=== PATIENT | male | born 1975 | race African-American/Black ===

== ENCOUNTER 2018-08-21 13:24 | Inpatient (IN) ==
[2018-08-21] MEDS ORDERED: ACETAMINOPHEN 325 MG TABLET PO PRN (16:10)
[2018-08-21] MEDS ORDERED: MAGNESIUM SULF RIDER 4 GM in PREMIX 1 EACH IV PRN (16:10)
[2018-08-21] MEDS ORDERED: MAGNESIUM SULF RIDER 2 GM in PREMIX 1 EACH IV PRN (16:10)
[2018-08-21] MEDS: tiZANidine 4 MG TABLET PO SCH ×2 (17:01→21:37)
[2018-08-21] MEDS: FUROSEMIDE 40 MG/4 ML VIAL IV SCH (17:04)
[2018-08-21] MEDS: ENOXAPARIN 40 MG/0.4 ML SYRINGE SUBCUT SCH (21:36)
[2018-08-22 04:11] LABS: Basophils % 0.7 % (0.0-0.8); Eosinophils # 0.1 10*3/uL (0.0-0.87); Eosinophils % 1.7 % (0.00-10.9); Hematocrit 32.7 VOL% (42.0-52.0); Hemoglobin 10.4 GM/DL (14.0-18.0); Immature Granulocytes % 0.2 %; Immature Granulocytes Absolute 0.01 #; Lymphocytes # 1.1 10*3/uL (1.4-4.0); Lymphocytes % 19.6 % (21.2-54.2); Mean Corpuscular HGB Conc 31.8 GM/DL (32-36); Mean Corpuscular Hemoglobin 31 PG (27-34); Mean Corpuscular Volume 95.9 FL (87-102); Mean Platelet Volume 11.2 FL (9.6-12.0); Monocytes # 0.5 10*3/uL (0.11-0.8); Monocytes % 9.1 % (1.7-12.7); Neutrophils % 68.7 % (38.7-73.9); Platelet Count 177 T/CUMM (130-400); Red Blood Count 3.41 MC/CUMM (3.8-5.5); Red Cell Distribution Width 15.4 % (9.3-17.3); White Blood Count 5.8 T/CUMM (4-12)
[2018-08-22 04:27] LABS: Albumin 2.6 G/DL (3.4-5.0); Bilirubin,Total 1.3 MG/DL (0.2-1.0); Calcium 8.2 MG/DL (8.5-10.1); Osmolality,Calculated 285.5 MOS/KG (273-304); Potassium 3.8 MMOL/L (3.5-5.1); Risk Ratio 2.27; Total Protein 7.4 G/DL (6.4-8.3); VLDL CHOLESTEROL 9.2 MG/DL
[2018-08-22] MEDS: PANTOPRAZOLE 40 MG TABLET PO SCH (13:08)
[2018-08-22] MEDS: METOPROLOL TARTRATE 25 MG TABLET PO SCH (13:08)
[2018-08-22] MEDS: SPIRONOLACTONE 25 MG TABLET PO SCH (13:08)
[2018-08-22] MEDS: FUROSEMIDE 40 MG/4 ML VIAL IV SCH ×2 (13:08→17:33)
[2018-08-22] MEDS ORDERED: ALBUMIN 25% 25 GM in PREMIX 1 EACH IV SCH (16:00)
[2018-08-22] MEDS: ALBUMIN 25% 25 GM in PREMIX 1 EACH IV SCH (17:32)
[2018-08-22] MEDS: ENOXAPARIN 40 MG/0.4 ML SYRINGE SUBCUT SCH (20:34)
[2018-08-23] MEDS: ALBUMIN 25% 25 GM in PREMIX 1 EACH IV SCH ×3 (00:37→16:34)
[2018-08-23] MEDS: tiZANidine 4 MG TABLET PO PRN ×3 (00:43→22:32)
[2018-08-23 04:17] LABS: Basophils # 0.1 10*3/uL (0.0-0.2); Basophils % 0.7 % (0.0-0.8); Eosinophils # 0.1 10*3/uL (0.0-0.87); Eosinophils % 1.3 % (0.00-10.9); Hematocrit 33.7 VOL% (42.0-52.0); Hemoglobin 10.5 GM/DL (14.0-18.0); Immature Granulocytes % 0.6 %; Immature Granulocytes Absolute 0.04 #; Lymphocytes % 14.5 % (21.2-54.2); Mean Corpuscular HGB Conc 31.2 GM/DL (32-36); Mean Corpuscular Hemoglobin 30 PG (27-34); Mean Corpuscular Volume 97.4 FL (87-102); Mean Platelet Volume 10.5 FL (9.6-12.0); Monocytes # 0.5 10*3/uL (0.11-0.8); Monocytes % 6.9 % (1.7-12.7); Neutrophils # 5.1 10*3/uL (1.4-7.4); Platelet Count 178 T/CUMM (130-400); Red Blood Count 3.46 MC/CUMM (3.8-5.5); Red Cell Distribution Width 15.2 % (9.3-17.3); White Blood Count 6.7 T/CUMM (4-12)
[2018-08-23 04:34] LABS: Calcium 8.5 MG/DL (8.5-10.1); Osmolality,Calculated 279.8 MOS/KG (273-304); Potassium 3.9 MMOL/L (3.5-5.1)
[2018-08-23] MEDS ORDERED: NITROGLYCERIN SL 0.4 MG TABLET SL PRN (05:26)
[2018-08-23 05:52] LABS: Troponin I 0.136 NG/ML (0.00-0.045)
[2018-08-23] MEDS: METOPROLOL TARTRATE 25 MG TABLET PO SCH (08:56)
[2018-08-23] MEDS: PANTOPRAZOLE 40 MG TABLET PO SCH (08:56)
[2018-08-23] MEDS: SPIRONOLACTONE 25 MG TABLET PO SCH (08:56)
[2018-08-23] MEDS: FUROSEMIDE 40 MG/4 ML VIAL IV SCH ×2 (08:59→16:34)
[2018-08-23] MEDS: ISOSORBIDE MONONITRATE 30 MG TABLET PO SCH (12:46)
[2018-08-23] MEDS: ENOXAPARIN 40 MG/0.4 ML SYRINGE SUBCUT SCH (22:22)
[2018-08-24] MEDS: ALBUMIN 25% 25 GM in PREMIX 1 EACH IV SCH ×2 (02:57→09:42)
[2018-08-24 04:00] LABS: Calcium 8.8 MG/DL (8.5-10.1); Osmolality,Calculated 284.5 MOS/KG (273-304); Potassium 3.9 MMOL/L (3.5-5.1)
[2018-08-24] MEDS ORDERED: metOLazone 5 MG TABLET PO ONE (09:00)
[2018-08-24] MEDS: ISOSORBIDE MONONITRATE 30 MG TABLET PO SCH (09:22)
[2018-08-24] MEDS: METOPROLOL TARTRATE 25 MG TABLET PO SCH (09:23)
[2018-08-24] MEDS: PANTOPRAZOLE 40 MG TABLET PO SCH (09:23)
[2018-08-24] MEDS: SPIRONOLACTONE 25 MG TABLET PO SCH (09:23)
[2018-08-24] MEDS: FUROSEMIDE 40 MG/4 ML VIAL IV SCH ×2 (09:23→18:57)
[2018-08-24] MEDS ORDERED: ISOSORBIDE MONONITRATE 30 MG TABLET PO SCH (09:45)
[2018-08-24] MEDS: LISINOPRIL 2.5 MG TABLET PO SCH (10:42)
[2018-08-24] MEDS: ENOXAPARIN 40 MG/0.4 ML SYRINGE SUBCUT SCH (20:20)
[2018-08-24] MEDS: CARVEDILOL 6.25 MG TABLET PO SCH (20:21)
[2018-08-24] MEDS: tiZANidine 4 MG TABLET PO PRN (20:21)
[2018-08-25] MEDS ORDERED: ALUMINUM/MAGNES/SIMETH MAX STR 30 ML UDCUP PO PRN (00:42)
[2018-08-25 08:05] VITALS: BP 111/51
[2018-08-25] MEDS: PANTOPRAZOLE 40 MG TABLET PO SCH (08:39)
[2018-08-25] MEDS: CARVEDILOL 6.25 MG TABLET PO SCH (08:39)
[2018-08-25] MEDS: SPIRONOLACTONE 25 MG TABLET PO SCH (08:39)
[2018-08-25] MEDS: LISINOPRIL 2.5 MG TABLET PO SCH (08:39)
[2018-08-25] MEDS: FUROSEMIDE 40 MG/4 ML VIAL IV SCH (08:40)
== END 2018-08-25 14:35 | disposition home or self-care (01) | DRG 194 ==
LOC: SUATTDRO 14:56 → N.TELES 14:56
PROVIDERS: ADMIT Internal Medicine; ATTEND Family Medicine

== ENCOUNTER 2019-05-25 14:51 | Inpatient (IN) ==
[2019-05-25] MEDS ORDERED: ZALEPLON 5 MG CAPSULE PO PRN (15:37)
[2019-05-25] MEDS ORDERED: POTASSIUM CHLORIDE 20 MEQ TABLET PO PRN (15:37)
[2019-05-25] MEDS ORDERED: BISACODYL 5 MG TABLET PO PRN (15:37)
[2019-05-25] MEDS ORDERED: ONDANSETRON 4 MG/2 ML VIAL IV PRN (15:37)
[2019-05-25] MEDS ORDERED: MAGNESIUM SULF RIDER 4 GM in PREMIX 1 EACH IV PRN (15:37)
[2019-05-25] MEDS ORDERED: traMADol 50 MG TABLET PO PRN (16:39)
[2019-05-25] MEDS ORDERED: FUROSEMIDE 40 MG/4 ML VIAL IV ONE (17:02)
[2019-05-25 17:10] LABS: Basophils # 0.1 10*3/uL (0.0-0.2); Basophils % 1.1 % (0.0-0.8); Eosinophils # 0.1 10*3/uL (0.0-0.87); Eosinophils % 2.3 % (0.00-10.9); Hematocrit 40.7 VOL% (42.0-52.0); Hemoglobin 12.7 GM/DL (14.0-18.0); Immature Granulocytes % 0.5 %; Immature Granulocytes Absolute 0.03 #; Lymphocytes # 1.2 10*3/uL (1.4-4.0); Lymphocytes % 18.6 % (21.2-54.2); Mean Corpuscular HGB Conc 31.2 GM/DL (32-36); Mean Corpuscular Volume 95.8 FL (87-102); Mean Platelet Volume 10.4 FL (9.6-12.0); Neutrophils % 68.5 % (38.7-73.9); Platelet Count 236 T/CUMM (130-400); Red Blood Count 4.25 MC/CUMM (3.8-5.5); Red Cell Distribution Width 15.2 % (9.3-17.3); White Blood Count 6.2 T/CUMM (4-12)
[2019-05-25] MEDS: PANTOPRAZOLE 40 MG TABLET PO SCH (17:19)
[2019-05-25] MEDS: tiZANidine 4 MG TABLET PO SCH (17:19)
[2019-05-25 17:35] LABS: Albumin 2.3 G/DL (3.4-5.0); Bilirubin,Total 1.2 MG/DL (0.2-1.0); Calcium 8.5 MG/DL (8.5-10.1); Osmolality,Calculated 284.8 MOS/KG (273-304); Total Protein 6.5 G/DL (6.4-8.3)
[2019-05-25 17:38] LABS: Troponin I 0.026 NG/ML (0.00-0.045)
[2019-05-25 19:44] LABS: Troponin I 0.021 NG/ML (0.00-0.045)
[2019-05-25] MEDS: carvediloL 6.25 MG TABLET PO SCH (20:31)
[2019-05-25] MEDS: ENOXAPARIN 40 MG/0.4 ML SYRINGE SUBCUT SCH (20:31)
[2019-05-25] MEDS: MAGNESIUM SULF RIDER 2 GM in PREMIX 1 EACH IV PRN (20:32)
[2019-05-25 22:15] LABS: Troponin I 0.028 NG/ML (0.00-0.045)
[2019-05-25 22:46] LABS: Barbiturates Screen,Urine Negative (Negative); Benzodiazepines Screen,Urine Negative (Negative); Cannabinoid Screen,Urine Negative (Negative); Opiate Screen,Urine Negative (Negative); Phencyclidine Screen,Urine Negative (Negative)
[2019-05-26] MEDS: tiZANidine 4 MG TABLET PO SCH ×4 (03:44→18:05)
[2019-05-26 06:07] LABS: Basophils # 0.1 10*3/uL (0.0-0.2); Basophils % 1.9 % (0.0-0.8); Eosinophils # 0.2 10*3/uL (0.0-0.87); Eosinophils % 3.2 % (0.00-10.9); Hematocrit 40.7 VOL% (42.0-52.0); Hemoglobin 12.8 GM/DL (14.0-18.0); Immature Granulocytes % 0.2 %; Immature Granulocytes Absolute 0.01 #; Lymphocytes # 1.3 10*3/uL (1.4-4.0); Lymphocytes % 23.6 % (21.2-54.2); Mean Corpuscular HGB Conc 31.4 GM/DL (32-36); Mean Corpuscular Volume 95.8 FL (87-102); Mean Platelet Volume 10.8 FL (9.6-12.0); Monocytes % 8.6 % (1.7-12.7); Neutrophils % 62.5 % (38.7-73.9); Platelet Count 235 T/CUMM (130-400); Red Blood Count 4.25 MC/CUMM (3.8-5.5); Red Cell Distribution Width 15.2 % (9.3-17.3); White Blood Count 5.4 T/CUMM (4-12)
[2019-05-26 06:46] LABS: Calcium 8.2 MG/DL (8.5-10.1); Risk Ratio 2.37; VLDL CHOLESTEROL 21.4 MG/DL
[2019-05-26] MEDS: carvediloL 6.25 MG TABLET PO SCH (08:01)
[2019-05-26] MEDS: POTASSIUM CHLORIDE 10 MEQ TABLET PO SCH (08:01)
[2019-05-26] MEDS: FUROSEMIDE 40 MG/4 ML VIAL IV SCH ×2 (08:01→16:14)
[2019-05-26] MEDS: ISOSORBIDE MONONITRATE 30 MG TABLET PO SCH (08:01)
[2019-05-26] MEDS: LISINOPRIL 2.5 MG TABLET PO SCH (08:02)
[2019-05-26] MEDS: PANTOPRAZOLE 40 MG TABLET PO SCH (08:02)
[2019-05-26] MEDS ORDERED: NON-FORMULARY MEDICATION (Omeprazole 20 MG) PO SCH (09:00)
[2019-05-26] MEDS: ENOXAPARIN 40 MG/0.4 ML SYRINGE SUBCUT SCH (20:24)
[2019-05-26] MEDS: carvediloL 3.125 MG TABLET PO SCH (20:26)
[2019-05-27] MEDS: tiZANidine 4 MG TABLET PO SCH ×4 (00:08→17:00)
[2019-05-27 05:27] LABS: Basophils # 0.1 10*3/uL (0.0-0.2); Basophils % 1.3 % (0.0-0.8); Eosinophils # 0.2 10*3/uL (0.0-0.87); Eosinophils % 3.2 % (0.00-10.9); Hematocrit 36.1 VOL% (42.0-52.0); Hemoglobin 11.6 GM/DL (14.0-18.0); Immature Granulocytes % 0.4 %; Immature Granulocytes Absolute 0.02 #; Lymphocytes # 1.4 10*3/uL (1.4-4.0); Lymphocytes % 26.1 % (21.2-54.2); Mean Corpuscular HGB Conc 32.1 GM/DL (32-36); Mean Platelet Volume 10.4 FL (9.6-12.0); Monocytes % 8.6 % (1.7-12.7); Neutrophils % 60.4 % (38.7-73.9); Platelet Count 201 T/CUMM (130-400); Red Cell Distribution Width 15.3 % (9.3-17.3); White Blood Count 5.3 T/CUMM (4-12)
[2019-05-27 05:56] LABS: Calcium 8.1 MG/DL (8.5-10.1); Osmolality,Calculated 277.4 MOS/KG (273-304)
[2019-05-27] MEDS: FUROSEMIDE 40 MG/4 ML VIAL IV SCH ×2 (08:38→15:17)
[2019-05-27] MEDS: ISOSORBIDE MONONITRATE 30 MG TABLET PO SCH (08:38)
[2019-05-27] MEDS: LISINOPRIL 2.5 MG TABLET PO SCH (08:38)
[2019-05-27] MEDS: carvediloL 3.125 MG TABLET PO SCH ×2 (08:38→21:45)
[2019-05-27] MEDS: PANTOPRAZOLE 40 MG TABLET PO SCH (08:39)
[2019-05-27] MEDS: POTASSIUM CHLORIDE 10 MEQ TABLET PO SCH (08:39)
[2019-05-27] MEDS: MAGNESIUM SULF RIDER 2 GM in PREMIX 1 EACH IV PRN (08:39)
[2019-05-27] MEDS: ENOXAPARIN 40 MG/0.4 ML SYRINGE SUBCUT SCH (21:40)
[2019-05-27] MEDS: ALBUTEROL/IPRATROPIUM 3 ML NEB RESP TX SCH (21:44)
[2019-05-28] MEDS: ALBUTEROL/IPRATROPIUM 3 ML NEB RESP TX SCH ×6 (01:04→20:36)
[2019-05-28] MEDS: tiZANidine 4 MG TABLET PO SCH ×4 (01:53→17:19)
[2019-05-28 06:07] LABS: Basophils % 0.7 % (0.0-0.8); Eosinophils # 0.1 10*3/uL (0.0-0.87); Eosinophils % 1.6 % (0.00-10.9); Hematocrit 36.8 VOL% (42.0-52.0); Immature Granulocytes % 0.4 %; Immature Granulocytes Absolute 0.02 #; Lymphocytes % 17.2 % (21.2-54.2); Mean Corpuscular HGB Conc 32.6 GM/DL (32-36); Mean Corpuscular Volume 93.6 FL (87-102); Mean Platelet Volume 10.2 FL (9.6-12.0); Monocytes % 8.6 % (1.7-12.7); Neutrophils % 71.5 % (38.7-73.9); Platelet Count 216 T/CUMM (130-400); Red Blood Count 3.93 MC/CUMM (3.8-5.5); Red Cell Distribution Width 15.1 % (9.3-17.3); White Blood Count 5.7 T/CUMM (4-12)
[2019-05-28 06:19] LABS: Calcium 8.4 MG/DL (8.5-10.1); Osmolality,Calculated 275.7 MOS/KG (273-304)
[2019-05-28] MEDS: carvediloL 3.125 MG TABLET PO SCH ×2 (08:39→21:15)
[2019-05-28] MEDS: ISOSORBIDE MONONITRATE 30 MG TABLET PO SCH (08:39)
[2019-05-28] MEDS: PANTOPRAZOLE 40 MG TABLET PO SCH (08:39)
[2019-05-28] MEDS: FUROSEMIDE 40 MG/4 ML VIAL IV SCH ×3 (08:39→17:17)
[2019-05-28] MEDS: LISINOPRIL 2.5 MG TABLET PO SCH (08:39)
[2019-05-28] MEDS: POTASSIUM CHLORIDE 10 MEQ TABLET PO SCH (08:39)
[2019-05-28] MEDS: MAGNESIUM SULF RIDER 2 GM in PREMIX 1 EACH IV PRN (08:40)
[2019-05-28] MEDS ORDERED: MAGNESIUM SULF RIDER 2 GM in PREMIX 1 EACH IV ONE (11:32)
[2019-05-28] MEDS: ENOXAPARIN 40 MG/0.4 ML SYRINGE SUBCUT SCH (21:15)
[2019-05-29] MEDS: tiZANidine 4 MG TABLET PO SCH ×4 (00:17→17:41)
[2019-05-29] MEDS: ALBUTEROL/IPRATROPIUM 3 ML NEB RESP TX SCH ×6 (00:45→23:39)
[2019-05-29 05:34] LABS: Basophils % 0.9 % (0.0-0.8); Eosinophils # 0.1 10*3/uL (0.0-0.87); Hematocrit 36.5 VOL% (42.0-52.0); Hemoglobin 11.6 GM/DL (14.0-18.0); Immature Granulocytes % 0.2 %; Immature Granulocytes Absolute 0.01 #; Lymphocytes % 22.5 % (21.2-54.2); Mean Corpuscular HGB Conc 31.8 GM/DL (32-36); Mean Corpuscular Volume 94.8 FL (87-102); Mean Platelet Volume 10.2 FL (9.6-12.0); Monocytes % 8.2 % (1.7-12.7); Neutrophils % 65.2 % (38.7-73.9); Platelet Count 190 T/CUMM (130-400); Red Blood Count 3.85 MC/CUMM (3.8-5.5); White Blood Count 4.6 T/CUMM (4-12)
[2019-05-29 06:04] LABS: Calcium 8.2 MG/DL (8.5-10.1); Osmolality,Calculated 278.5 MOS/KG (273-304)
[2019-05-29] MEDS: carvediloL 3.125 MG TABLET PO SCH ×2 (09:37→22:03)
[2019-05-29] MEDS: ISOSORBIDE MONONITRATE 30 MG TABLET PO SCH (09:37)
[2019-05-29] MEDS: POTASSIUM CHLORIDE 10 MEQ TABLET PO SCH (09:37)
[2019-05-29] MEDS: PANTOPRAZOLE 40 MG TABLET PO SCH (09:37)
[2019-05-29] MEDS: FUROSEMIDE 40 MG/4 ML VIAL IV SCH ×2 (09:37→16:23)
[2019-05-29] MEDS: LISINOPRIL 2.5 MG TABLET PO SCH (09:37)
[2019-05-29] MEDS: ENOXAPARIN 40 MG/0.4 ML SYRINGE SUBCUT SCH (22:03)
[2019-05-30] MEDS: tiZANidine 4 MG TABLET PO SCH ×3 (00:45→13:04)
[2019-05-30] MEDS: ALBUTEROL/IPRATROPIUM 3 ML NEB RESP TX SCH ×3 (02:59→11:25)
[2019-05-30] MEDS: carvediloL 3.125 MG TABLET PO SCH (08:40)
[2019-05-30] MEDS: FUROSEMIDE 40 MG/4 ML VIAL IV SCH (08:40)
[2019-05-30] MEDS: LISINOPRIL 2.5 MG TABLET PO SCH (08:41)
[2019-05-30] MEDS: POTASSIUM CHLORIDE 10 MEQ TABLET PO SCH (08:41)
[2019-05-30] MEDS: ISOSORBIDE MONONITRATE 30 MG TABLET PO SCH (08:41)
[2019-05-30] MEDS: PANTOPRAZOLE 40 MG TABLET PO SCH (08:41)
[2019-05-30 12:18] VITALS: BP 82/55
== END 2019-05-30 14:43 | disposition home or self-care (01) | DRG 194 ==
LOC: INTOOBSV 15:42 → N.TELEN 15:42
PROVIDERS: ADMIT Internal Medicine Cardiovascular Disease; ATTEND Internal Medicine Cardiovascular Disease

== ENCOUNTER 2019-08-15 16:55 | Inpatient (IN) ==
[2019-08-15] MEDS ORDERED: FUROSEMIDE 100 MG/10 ML VIAL IV STA (17:34)
[2019-08-15 17:46] LABS: Basophils # 0.1 10*3/uL (0.0-0.2); Basophils % 0.9 % (0.0-0.8); Eosinophils # 0.2 10*3/uL (0.0-0.87); Hematocrit 42.2 VOL% (42.0-52.0); Hemoglobin 13.2 GM/DL (14.0-18.0); Immature Granulocytes % 0.3 %; Immature Granulocytes Absolute 0.02 #; Lymphocytes % 13.7 % (21.2-54.2); Mean Corpuscular HGB Conc 31.3 GM/DL (32-36); Mean Corpuscular Volume 101.4 FL (87-102); Mean Platelet Volume 9.9 FL (9.6-12.0); Monocytes % 8.3 % (1.7-12.7); Neutrophils % 74.8 % (38.7-73.9); Platelet Count 270 T/CUMM (130-400); Red Blood Count 4.16 MC/CUMM (3.8-5.5); Red Cell Distribution Width 15.1 % (9.3-17.3); White Blood Count 7.4 T/CUMM (4-12)
[2019-08-15 18:11] LABS: Albumin 2.3 G/DL (3.4-5.0); Bilirubin,Total 0.9 MG/DL (0.2-1.0); Calcium 8.5 MG/DL (8.5-10.1); Osmolality,Calculated 277.4 MOS/KG (273-304); Total Protein 7.3 G/DL (6.4-8.3)
[2019-08-15] MEDS ORDERED: ONDANSETRON 4 MG/2 ML VIAL ONE (18:15)
[2019-08-15] MEDS ORDERED: methylPREDNISolone SOD SUC 125 MG/2 ML VIAL IV STA (18:20)
[2019-08-15] MEDS ORDERED: FUROSEMIDE 40 MG/4 ML VIAL IV STA (18:20)
[2019-08-15] MEDS ORDERED: ALBUTEROL/IPRATROPIUM 3 ML NEB RESP TX STA (18:20)
[2019-08-15] MEDS ORDERED: ONDANSETRON 4 MG/2 ML VIAL IV STA (18:20)
[2019-08-15 18:52] LABS: ABG Base Excess 0.5 MMOL/L (-2.5-2.5); ABG HCO3 24.4 MMOL/L (20-26); ABG Oxygen Saturation 77.5 % (95-100); ABG PCO2 47.3 MM HG (35-48); ABG PH 7.358 (7.35-7.45); ABG PO2 48.9 MM HG (80-95); ABG TCO2 23.4 MMOL/L (23-27)
[2019-08-15] MEDS ORDERED: ENOXAPARIN 100 MG/ML SYRINGE SUBCUT STA (18:54)
[2019-08-15] MEDS ORDERED: ENOXAPARIN 120 MG/0.8 ML SYRINGE SUBCUT ONE (19:19)
[2019-08-15 19:50] LABS: Apearance,Urine CLEAR (Clear); Bilirubin,Urine Negative (Negative); Blood, Urine Small mg/dL (Negative); Glucose,Urine (UA) Negative (Negative); Ketones,Urine Negative (Negative); Nitrite,Urine Negative (Negative); Protein,Urine Negative; RBC,Urine 6 /HPF (0-4); Urine Color Colorless (Yellow); Urine Specific Gravity 1.004 (1.001-1.035); Urine Urobilinogen < 2.0 EU/DL (0.2-1.0); WBC,Urine 1 /HPF (0-6)
[2019-08-15 19:53] LABS: Barbiturates Screen,Urine Negative (Negative); Benzodiazepines Screen,Urine Negative (Negative); Cannabinoid Screen,Urine Negative (Negative); Opiate Screen,Urine Negative (Negative); Phencyclidine Screen,Urine Negative (Negative)
[2019-08-15] MEDS ORDERED: traMADol 50 MG TABLET PO PRN (20:19)
[2019-08-15] MEDS ORDERED: ALBUTEROL/IPRATROPIUM 3 ML NEB RESP TX PRN (20:19)
[2019-08-15] MEDS ORDERED: ENOXAPARIN 40 MG/0.4 ML SYRINGE SUBCUT SCH (20:30)
[2019-08-15 20:37] LABS: Allen Test Positive; Pt O2 Delivery Device BIPAP
[2019-08-15 20:39] LABS: ABG Base Excess 1.7 MMOL/L (-2.5-2.5); ABG HCO3 25.9 MMOL/L (20-26); ABG PCO2 46.7 MM HG (35-48); ABG PH 7.378 (7.35-7.45); ABG TCO2 24.1 MMOL/L (23-27)
[2019-08-15] MEDS: carvediloL 3.125 MG TABLET PO SCH (22:17)
[2019-08-15] MEDS: methylPREDNISolone SOD SUC 40 MG/1 ML VIAL IV SCH (22:17)
[2019-08-15] MEDS: tiZANidine 4 MG TABLET PO SCH (22:18)
[2019-08-15 22:22] LABS: Troponin I < 0.015 NG/ML (0.00-0.045)
[2019-08-16] MEDS: methylPREDNISolone SOD SUC 40 MG/1 ML VIAL IV SCH ×4 (04:32→20:43)
[2019-08-16] MEDS: tiZANidine 4 MG TABLET PO SCH ×4 (04:33→20:44)
[2019-08-16 06:22] LABS: Basophils % 0.2 % (0.0-0.8); Hematocrit 39.9 VOL% (42.0-52.0); Hemoglobin 12.4 GM/DL (14.0-18.0); Immature Granulocytes % 0.6 %; Immature Granulocytes Absolute 0.03 #; Lymphocytes # 0.5 10*3/uL (1.4-4.0); Lymphocytes % 9.4 % (21.2-54.2); Mean Corpuscular HGB Conc 31.1 GM/DL (32-36); Monocytes % 0.8 % (1.7-12.7); Platelet Count 231 T/CUMM (130-400); Red Blood Count 3.91 MC/CUMM (3.8-5.5); Red Cell Distribution Width 15.1 % (9.3-17.3); White Blood Count 5.3 T/CUMM (4-12)
[2019-08-16 06:41] LABS: Albumin 2.1 G/DL (3.4-5.0); Bilirubin,Total 1.8 MG/DL (0.2-1.0); Calcium 8.2 MG/DL (8.5-10.1); Osmolality,Calculated 282.4 MOS/KG (273-304); Risk Ratio 2.02; Total Protein 6.4 G/DL (6.4-8.3); VLDL CHOLESTEROL 13.6 MG/DL
[2019-08-16 06:44] LABS: Troponin I < 0.015 NG/ML (0.00-0.045)
[2019-08-16] MEDS ORDERED: FUROSEMIDE 40 MG/4 ML VIAL IV SCH (08:00)
[2019-08-16] MEDS: FUROSEMIDE 40 MG/4 ML VIAL IV SCH ×2 (08:03→16:04)
[2019-08-16] MEDS: carvediloL 3.125 MG TABLET PO SCH ×2 (08:03→16:59)
[2019-08-16] MEDS: POTASSIUM CHLORIDE 10 MEQ TABLET PO SCH (08:03)
[2019-08-16] MEDS: PANTOPRAZOLE 40 MG TABLET PO SCH (08:03)
[2019-08-16] MEDS ORDERED: lisinopriL 2.5 MG TABLET PO SCH (09:00)
[2019-08-16] MEDS ORDERED: ISOSORBIDE MONONITRATE 30 MG TABLET PO SCH (09:00)
[2019-08-16] MEDS ORDERED: SODIUM CHLORIDE 0.9% 250 ML IV ONE (12:39)
[2019-08-16] MEDS ORDERED: NICOTINE 21 MG/24 HR PATCH TRANSDERM PRN (14:54)
[2019-08-16] MEDS: MULTIVITAMIN (CENTRUM) TABLET PO SCH (16:03)
[2019-08-16] MEDS: FOLIC ACID 1 MG TABLET PO SCH (16:03)
[2019-08-16] MEDS: THIAMINE 100 MG TABLET PO SCH (16:03)
[2019-08-16] MEDS: ENOXAPARIN 40 MG/0.4 ML SYRINGE SUBCUT SCH (20:43)
[2019-08-17] MEDS: methylPREDNISolone SOD SUC 40 MG/1 ML VIAL IV SCH ×4 (01:50→20:23)
[2019-08-17] MEDS: tiZANidine 4 MG TABLET PO SCH ×4 (03:04→22:26)
[2019-08-17 06:11] LABS: Basophils % 0.1 % (0.0-0.8); Hematocrit 38.4 VOL% (42.0-52.0); Immature Granulocytes % 0.4 %; Immature Granulocytes Absolute 0.05 #; Lymphocytes # 0.6 10*3/uL (1.4-4.0); Lymphocytes % 4.6 % (21.2-54.2); Mean Corpuscular HGB Conc 31.3 GM/DL (32-36); Mean Corpuscular Volume 101.3 FL (87-102); Monocytes % 2.8 % (1.7-12.7); Neutrophils % 92.1 % (38.7-73.9); Platelet Count 252 T/CUMM (130-400); Red Blood Count 3.79 MC/CUMM (3.8-5.5); Red Cell Distribution Width 14.8 % (9.3-17.3); White Blood Count 12.1 T/CUMM (4-12)
[2019-08-17 06:34] LABS: Band Neutrophils 1 % (0-10); Hypochromasia 1+; Lymphocytes 1 % (20-55); Platelet Estimate Adequate; Segmented Neutrophils 95 % (50-85); Total Cells Counted 100
[2019-08-17 06:35] LABS: Ovalocytes Slight
[2019-08-17 06:46] LABS: Calcium 8.4 MG/DL (8.5-10.1); Osmolality,Calculated 281.4 MOS/KG (273-304)
[2019-08-17] MEDS: PANTOPRAZOLE 40 MG TABLET PO SCH (08:40)
[2019-08-17] MEDS: POTASSIUM CHLORIDE 10 MEQ TABLET PO SCH (08:40)
[2019-08-17] MEDS: MULTIVITAMIN (CENTRUM) TABLET PO SCH (08:40)
[2019-08-17] MEDS: FOLIC ACID 1 MG TABLET PO SCH (08:40)
[2019-08-17] MEDS: THIAMINE 100 MG TABLET PO SCH (08:40)
[2019-08-17] MEDS: carvediloL 3.125 MG TABLET PO SCH ×2 (08:42→16:57)
[2019-08-17] MEDS: FUROSEMIDE 40 MG/4 ML VIAL IV SCH ×3 (08:42→15:41)
[2019-08-17] MEDS: ENOXAPARIN 40 MG/0.4 ML SYRINGE SUBCUT SCH (20:23)
[2019-08-18] MEDS: methylPREDNISolone SOD SUC 40 MG/1 ML VIAL IV SCH ×4 (02:09→20:53)
[2019-08-18] MEDS: tiZANidine 4 MG TABLET PO SCH ×4 (04:21→20:56)
[2019-08-18 05:38] LABS: Basophils % 0.1 % (0.0-0.8); Hematocrit 39.9 VOL% (42.0-52.0); Hemoglobin 12.4 GM/DL (14.0-18.0); Immature Granulocytes % 0.7 %; Immature Granulocytes Absolute 0.08 #; Lymphocytes # 0.4 10*3/uL (1.4-4.0); Lymphocytes % 3.2 % (21.2-54.2); Mean Corpuscular HGB Conc 31.1 GM/DL (32-36); Mean Corpuscular Volume 102.3 FL (87-102); Mean Platelet Volume 10.1 FL (9.6-12.0); Monocytes % 2.3 % (1.7-12.7); Neutrophils % 93.7 % (38.7-73.9); Platelet Count 243 T/CUMM (130-400); White Blood Count 11.1 T/CUMM (4-12)
[2019-08-18 06:00] LABS: Hypochromasia 1+; Lymphocytes 4 % (20-55); Platelet Estimate Adequate; Segmented Neutrophils 94 % (50-85); Total Cells Counted 100
[2019-08-18 06:04] LABS: Calcium 8.4 MG/DL (8.5-10.1); Osmolality,Calculated 279.5 MOS/KG (273-304)
[2019-08-18] MEDS: carvediloL 3.125 MG TABLET PO SCH ×2 (08:48→16:57)
[2019-08-18] MEDS: FUROSEMIDE 40 MG/4 ML VIAL IV SCH ×2 (08:49→15:46)
[2019-08-18] MEDS: MULTIVITAMIN (CENTRUM) TABLET PO SCH (08:53)
[2019-08-18] MEDS: POTASSIUM CHLORIDE 10 MEQ TABLET PO SCH (08:53)
[2019-08-18] MEDS: THIAMINE 100 MG TABLET PO SCH (08:53)
[2019-08-18] MEDS: FOLIC ACID 1 MG TABLET PO SCH (08:53)
[2019-08-18] MEDS: PANTOPRAZOLE 40 MG TABLET PO SCH (08:53)
[2019-08-18] MEDS: ENOXAPARIN 40 MG/0.4 ML SYRINGE SUBCUT SCH (20:56)
[2019-08-19] MEDS: methylPREDNISolone SOD SUC 40 MG/1 ML VIAL IV SCH ×4 (03:46→20:22)
[2019-08-19] MEDS: tiZANidine 4 MG TABLET PO SCH ×3 (03:47→15:44)
[2019-08-19 05:15] LABS: Basophils % 0.1 % (0.0-0.8); Hematocrit 38.6 VOL% (42.0-52.0); Hemoglobin 12.3 GM/DL (14.0-18.0); Immature Granulocytes % 0.5 %; Immature Granulocytes Absolute 0.04 #; Lymphocytes # 0.7 10*3/uL (1.4-4.0); Lymphocytes % 8.3 % (21.2-54.2); Mean Corpuscular HGB Conc 31.9 GM/DL (32-36); Mean Corpuscular Volume 100.5 FL (87-102); Mean Platelet Volume 10.6 FL (9.6-12.0); Monocytes % 5.7 % (1.7-12.7); Neutrophils % 85.4 % (38.7-73.9); Platelet Count 232 T/CUMM (130-400); Red Blood Count 3.84 MC/CUMM (3.8-5.5); Red Cell Distribution Width 14.9 % (9.3-17.3); White Blood Count 8.8 T/CUMM (4-12)
[2019-08-19 05:41] LABS: Calcium 8.2 MG/DL (8.5-10.1); Osmolality,Calculated 278.7 MOS/KG (273-304)
[2019-08-19] MEDS ORDERED: MAGNESIUM SULF RIDER 2 GM in PREMIX 1 EACH IV PRN (07:17)
[2019-08-19] MEDS ORDERED: MAGNESIUM SULF RIDER 4 GM in PREMIX 1 EACH IV PRN (07:17)
[2019-08-19] MEDS: carvediloL 3.125 MG TABLET PO SCH (07:49)
[2019-08-19] MEDS: FUROSEMIDE 40 MG/4 ML VIAL IV SCH (09:09)
[2019-08-19] MEDS: POTASSIUM CHLORIDE 10 MEQ TABLET PO SCH (09:11)
[2019-08-19] MEDS: MULTIVITAMIN (CENTRUM) TABLET PO SCH (09:11)
[2019-08-19] MEDS: POTASSIUM CHLORIDE 20 MEQ TABLET PO PRN (09:12)
[2019-08-19] MEDS: PANTOPRAZOLE 40 MG TABLET PO SCH (09:12)
[2019-08-19] MEDS: THIAMINE 100 MG TABLET PO SCH (09:16)
[2019-08-19] MEDS: FOLIC ACID 1 MG TABLET PO SCH (09:19)
[2019-08-19] MEDS ORDERED: MORPHINE 4 MG/1 ML VIAL ONE (11:18)
[2019-08-19] MEDS ORDERED: NITROGLYCERIN SL 0.4 MG TABLET SL ONE (11:18)
[2019-08-19 12:28] LABS: Troponin I < 0.015 NG/ML (0.00-0.045)
[2019-08-19] MEDS: FUROSEMIDE 20 MG TABLET PO SCH (15:44)
[2019-08-19] MEDS: ENOXAPARIN 40 MG/0.4 ML SYRINGE SUBCUT SCH (20:26)
[2019-08-19] MEDS ORDERED: carvediloL 3.125 MG TABLET PO SCH (21:00)
[2019-08-20] MEDS: tiZANidine 4 MG TABLET PO SCH ×5 (00:15→20:42)
[2019-08-20] MEDS: methylPREDNISolone SOD SUC 40 MG/1 ML VIAL IV SCH ×4 (01:30→20:42)
[2019-08-20 05:38] LABS: Hemoglobin 13.9 GM/DL (14.0-18.0); Immature Granulocytes % 0.7 %; Immature Granulocytes Absolute 0.07 #; Lymphocytes # 0.5 10*3/uL (1.4-4.0); Lymphocytes % 5.4 % (21.2-54.2); Mean Corpuscular HGB Conc 31.6 GM/DL (32-36); Mean Corpuscular Volume 100.9 FL (87-102); Mean Platelet Volume 11.3 FL (9.6-12.0); Monocytes % 5.3 % (1.7-12.7); Neutrophils % 88.6 % (38.7-73.9); Platelet Count 161 T/CUMM (130-400); Red Blood Count 4.36 MC/CUMM (3.8-5.5); Red Cell Distribution Width 14.7 % (9.3-17.3); White Blood Count 9.4 T/CUMM (4-12)
[2019-08-20 06:15] LABS: Calcium 8.6 MG/DL (8.5-10.1); Osmolality,Calculated 277.8 MOS/KG (273-304)
[2019-08-20] MEDS: carvediloL 3.125 MG TABLET PO SCH ×2 (10:05→20:43)
[2019-08-20] MEDS: PANTOPRAZOLE 40 MG TABLET PO SCH (10:05)
[2019-08-20] MEDS: POTASSIUM CHLORIDE 10 MEQ TABLET PO SCH (10:05)
[2019-08-20] MEDS: MULTIVITAMIN (CENTRUM) TABLET PO SCH (10:05)
[2019-08-20] MEDS: FOLIC ACID 1 MG TABLET PO SCH (10:05)
[2019-08-20] MEDS: THIAMINE 100 MG TABLET PO SCH (10:06)
[2019-08-20] MEDS: FUROSEMIDE 20 MG TABLET PO SCH ×2 (10:06→16:55)
[2019-08-20] MEDS: ENOXAPARIN 40 MG/0.4 ML SYRINGE SUBCUT SCH (20:42)
[2019-08-21] MEDS: methylPREDNISolone SOD SUC 40 MG/1 ML VIAL IV SCH ×4 (01:36→22:41)
[2019-08-21] MEDS: tiZANidine 4 MG TABLET PO SCH ×4 (02:37→22:14)
[2019-08-21 05:49] LABS: Hematocrit 38.6 VOL% (42.0-52.0); Hemoglobin 12.6 GM/DL (14.0-18.0); Immature Granulocytes % 0.6 %; Immature Granulocytes Absolute 0.04 #; Lymphocytes # 0.2 10*3/uL (1.4-4.0); Lymphocytes % 3.5 % (21.2-54.2); Mean Corpuscular HGB Conc 32.6 GM/DL (32-36); Mean Platelet Volume 10.8 FL (9.6-12.0); Monocytes % 1.8 % (1.7-12.7); Neutrophils % 94.1 % (38.7-73.9); Platelet Count 182 T/CUMM (130-400); Red Cell Distribution Width 14.6 % (9.3-17.3); White Blood Count 6.6 T/CUMM (4-12)
[2019-08-21 06:02] LABS: Calcium 8.3 MG/DL (8.5-10.1); Osmolality,Calculated 285.7 MOS/KG (273-304)
[2019-08-21 06:12] LABS: Lymphocytes 1 % (20-55); Platelet Estimate Adequate; Segmented Neutrophils 97 % (50-85); Total Cells Counted 100
[2019-08-21 06:13] LABS: Hypochromasia 1+
[2019-08-21] MEDS: MULTIVITAMIN (CENTRUM) TABLET PO SCH (10:03)
[2019-08-21] MEDS: POTASSIUM CHLORIDE 20 MEQ TABLET PO PRN (10:03)
[2019-08-21] MEDS: carvediloL 3.125 MG TABLET PO SCH ×2 (10:03→22:13)
[2019-08-21] MEDS: POTASSIUM CHLORIDE 10 MEQ TABLET PO SCH (10:04)
[2019-08-21] MEDS: PANTOPRAZOLE 40 MG TABLET PO SCH (10:04)
[2019-08-21] MEDS: THIAMINE 100 MG TABLET PO SCH (10:04)
[2019-08-21] MEDS: FUROSEMIDE 20 MG TABLET PO SCH ×2 (10:04→17:00)
[2019-08-21] MEDS: FOLIC ACID 1 MG TABLET PO SCH (10:04)
[2019-08-21] MEDS: lisinopriL 2.5 MG TABLET PO SCH (10:07)
[2019-08-21] MEDS: ENOXAPARIN 40 MG/0.4 ML SYRINGE SUBCUT SCH (22:15)
[2019-08-22] MEDS: methylPREDNISolone SOD SUC 40 MG/1 ML VIAL IV SCH ×4 (04:07→21:54)
[2019-08-22] MEDS: tiZANidine 4 MG TABLET PO SCH ×4 (04:09→21:58)
[2019-08-22 05:28] LABS: Hematocrit 40.2 VOL% (42.0-52.0); Hemoglobin 12.8 GM/DL (14.0-18.0); Immature Granulocytes % 0.4 %; Immature Granulocytes Absolute 0.04 #; Lymphocytes # 0.3 10*3/uL (1.4-4.0); Lymphocytes % 2.8 % (21.2-54.2); Mean Corpuscular HGB Conc 31.8 GM/DL (32-36); Mean Platelet Volume 10.9 FL (9.6-12.0); Neutrophils % 93.8 % (38.7-73.9); Platelet Count 173 T/CUMM (130-400); Red Blood Count 4.06 MC/CUMM (3.8-5.5); Red Cell Distribution Width 14.6 % (9.3-17.3); White Blood Count 9.6 T/CUMM (4-12)
[2019-08-22 05:47] LABS: Calcium 8.4 MG/DL (8.5-10.1); Osmolality,Calculated 280.8 MOS/KG (273-304)
[2019-08-22 05:49] LABS: Hypochromasia 1+; Lymphocytes 2 % (20-55); Ovalocytes Slight; Platelet Estimate Adequate; Segmented Neutrophils 95 % (50-85); Total Cells Counted 100
[2019-08-22] MEDS: POTASSIUM CHLORIDE 20 MEQ TABLET PO PRN (06:14)
[2019-08-22] MEDS ORDERED: FUROSEMIDE 40 MG/4 ML VIAL IV ONE (09:17)
[2019-08-22] MEDS: FOLIC ACID 1 MG TABLET PO SCH (09:43)
[2019-08-22] MEDS: MULTIVITAMIN (CENTRUM) TABLET PO SCH (09:43)
[2019-08-22] MEDS: POTASSIUM CHLORIDE 10 MEQ TABLET PO SCH (09:43)
[2019-08-22] MEDS: carvediloL 3.125 MG TABLET PO SCH ×2 (09:44→21:57)
[2019-08-22] MEDS: lisinopriL 2.5 MG TABLET PO SCH (09:44)
[2019-08-22] MEDS: PANTOPRAZOLE 40 MG TABLET PO SCH (09:44)
[2019-08-22] MEDS: ASPIRIN EC 81 MG TABLET PO SCH (09:44)
[2019-08-22] MEDS: THIAMINE 100 MG TABLET PO SCH (09:44)
[2019-08-22] MEDS: FUROSEMIDE 20 MG TABLET PO SCH ×2 (09:50→16:07)
[2019-08-22] MEDS: ALBUTEROL/IPRATROPIUM 3 ML NEB RESP TX SCH ×2 (13:00→21:11)
[2019-08-22] MEDS: ENOXAPARIN 40 MG/0.4 ML SYRINGE SUBCUT SCH (21:58)
[2019-08-23] MEDS: ALBUTEROL/IPRATROPIUM 3 ML NEB RESP TX SCH ×2 (01:13→07:39)
[2019-08-23] MEDS: methylPREDNISolone SOD SUC 40 MG/1 ML VIAL IV SCH ×2 (03:19→09:37)
[2019-08-23] MEDS: tiZANidine 4 MG TABLET PO SCH ×2 (03:50→09:38)
[2019-08-23 06:01] LABS: Basophils % 0.1 % (0.0-0.8); Hemoglobin 12.8 GM/DL (14.0-18.0); Immature Granulocytes % 0.5 %; Immature Granulocytes Absolute 0.05 #; Lymphocytes # 0.3 10*3/uL (1.4-4.0); Mean Corpuscular Volume 99.5 FL (87-102); Mean Platelet Volume 10.8 FL (9.6-12.0); Monocytes % 2.6 % (1.7-12.7); Neutrophils % 93.8 % (38.7-73.9); Platelet Count 176 T/CUMM (130-400); Red Blood Count 4.02 MC/CUMM (3.8-5.5); Red Cell Distribution Width 14.4 % (9.3-17.3); White Blood Count 10.3 T/CUMM (4-12)
[2019-08-23 06:26] LABS: Lymphocytes 2 % (20-55); Segmented Neutrophils 97 % (50-85); Total Cells Counted 100
[2019-08-23 06:27] LABS: Hypochromasia 2+; Platelet Estimate Normal
[2019-08-23 06:31] LABS: Calcium 8.7 MG/DL (8.5-10.1); Osmolality,Calculated 283.7 MOS/KG (273-304)
[2019-08-23] MEDS ORDERED: FUROSEMIDE 40 MG TABLET PO SCH (08:00)
[2019-08-23] MEDS: lisinopriL 2.5 MG TABLET PO SCH (09:38)
[2019-08-23] MEDS: MULTIVITAMIN (CENTRUM) TABLET PO SCH (09:38)
[2019-08-23] MEDS: ASPIRIN EC 81 MG TABLET PO SCH (09:38)
[2019-08-23] MEDS: carvediloL 3.125 MG TABLET PO SCH (09:38)
[2019-08-23] MEDS: PANTOPRAZOLE 40 MG TABLET PO SCH (09:38)
[2019-08-23] MEDS: POTASSIUM CHLORIDE 10 MEQ TABLET PO SCH (09:38)
[2019-08-23] MEDS: THIAMINE 100 MG TABLET PO SCH (09:39)
[2019-08-23] MEDS: POTASSIUM CHLORIDE 20 MEQ TABLET PO PRN (09:39)
[2019-08-23] MEDS: FOLIC ACID 1 MG TABLET PO SCH (09:39)
[2019-08-23 12:27] VITALS: BP 111/68
== END 2019-08-23 11:52 | disposition swing bed (61) | DRG 291 ==
LOC: N.ED 16:55 → N.EDINP 20:12 → N.ICU 21:10 → N.TELEN 08-19 12:59
PROVIDERS: ADMIT Internal Medicine; ATTEND Internal Medicine

== ENCOUNTER 2019-10-03 04:17 | Observation (INO) ==
[2019-10-03] MEDS ORDERED: ONDANSETRON 4 MG/2 ML VIAL IV PRN (06:43)
[2019-10-03] MEDS ORDERED: DOCUSATE SODIUM 100 MG CAPSULE PO PRN (06:43)
[2019-10-03] MEDS ORDERED: ACETAMINOPHEN 325 MG TABLET PO PRN (06:43)
[2019-10-03] MEDS ORDERED: ENOXAPARIN 40 MG/0.4 ML SYRINGE SUBCUT SCH (07:00)
[2019-10-03 07:45] LABS: Basophils # 0.1 10*3/uL (0.0-0.2); Basophils % 0.7 % (0.0-0.8); Eosinophils % 0.3 % (0.00-10.9); Hematocrit 43.9 VOL% (42.0-52.0); Hemoglobin 14.1 GM/DL (14.0-18.0); Immature Granulocytes % 0.7 %; Immature Granulocytes Absolute 0.07 #; Lymphocytes # 1.8 10*3/uL (1.4-4.0); Lymphocytes % 19.4 % (21.2-54.2); Mean Corpuscular HGB Conc 32.1 GM/DL (32-36); Mean Corpuscular Volume 98.2 FL (87-102); Mean Platelet Volume 10.7 FL (9.6-12.0); Monocytes % 8.7 % (1.7-12.7); Neutrophils % 70.2 % (38.7-73.9); Platelet Count 249 T/CUMM (130-400); Red Blood Count 4.47 MC/CUMM (3.8-5.5); Red Cell Distribution Width 14.9 % (9.3-17.3); White Blood Count 9.5 T/CUMM (4-12)
[2019-10-03] MEDS ORDERED: DIGOXIN 0.5 MG/2 ML AMP IV ONE ×2 (08:24→15:07)
[2019-10-03 08:37] LABS: Albumin 3.1 G/DL (3.4-5.0); Bilirubin,Total 2.5 MG/DL (0.2-1.0); Calcium 9.1 MG/DL (8.5-10.1); Osmolality,Calculated 270.8 MOS/KG (273-304); Total Protein 6.7 G/DL (6.4-8.3)
[2019-10-03] MEDS: FUROSEMIDE 40 MG TABLET PO SCH ×2 (09:01→15:33)
[2019-10-03] MEDS: MULTIVITAMIN (CENTRUM) TABLET PO SCH (09:01)
[2019-10-03] MEDS: POTASSIUM CHLORIDE 10 MEQ TABLET PO SCH (09:01)
[2019-10-03] MEDS: tiZANidine 4 MG TABLET PO SCH ×3 (09:01→19:50)
[2019-10-03] MEDS: carvediloL 3.125 MG TABLET PO SCH ×2 (10:55→20:47)
[2019-10-03] MEDS: DIGOXIN 0.125 MG TABLET PO SCH (12:40)
[2019-10-03] MEDS: ASPIRIN EC 325 MG TABLET PO SCH (13:10)
[2019-10-03 13:22] LABS: Apearance,Urine CLEAR (Clear); Bilirubin,Urine Negative (Negative); Blood, Urine Negative (Negative); Glucose,Urine (UA) Negative (Negative); Hyaline Casts,Urine 1 /LPF (0-3); Ketones,Urine Negative (Negative); Nitrite,Urine Negative (Negative); Protein,Urine Negative; RBC,Urine 1 /HPF (0-4); Squamous Epithelial Cell,Urine Occasional /HPF (0-10); Urine Color Yellow (Yellow); Urine Specific Gravity 1.019 (1.001-1.035); WBC,Urine <1 /HPF (0-6)
[2019-10-03 14:31] LABS: Barbiturates Screen,Urine Negative (Negative); Benzodiazepines Screen,Urine Negative (Negative); Cannabinoid Screen,Urine Positive (Negative); Opiate Screen,Urine Negative (Negative); Phencyclidine Screen,Urine Negative (Negative)
[2019-10-03] MEDS ORDERED: SODIUM CHLORIDE 0.9% 500 ML IV ONE (15:16)
[2019-10-03] MEDS: MORPHINE 4 MG/1 ML VIAL IV PRN ×2 (19:47→22:49)
[2019-10-03] MEDS: ENOXAPARIN 100 MG/ML SYRINGE SUBCUT SCH (20:47)
[2019-10-04] MEDS: tiZANidine 4 MG TABLET PO SCH ×3 (00:54→06:03)
[2019-10-04] MEDS: MORPHINE 4 MG/1 ML VIAL IV PRN ×2 (02:15→21:05)
[2019-10-04 03:44] LABS: Basophils # 0.1 10*3/uL (0.0-0.2); Basophils % 0.8 % (0.0-0.8); Eosinophils # 0.1 10*3/uL (0.0-0.87); Eosinophils % 1.7 % (0.00-10.9); Hematocrit 37.5 VOL% (42.0-52.0); Hemoglobin 12.4 GM/DL (14.0-18.0); Immature Granulocytes % 0.4 %; Immature Granulocytes Absolute 0.03 #; Lymphocytes # 1.7 10*3/uL (1.4-4.0); Mean Corpuscular HGB Conc 33.1 GM/DL (32-36); Mean Corpuscular Volume 95.9 FL (87-102); Mean Platelet Volume 10.1 FL (9.6-12.0); Monocytes % 7.7 % (1.7-12.7); Neutrophils % 68.4 % (38.7-73.9); Platelet Count 211 T/CUMM (130-400); Red Blood Count 3.91 MC/CUMM (3.8-5.5); Red Cell Distribution Width 14.6 % (9.3-17.3); White Blood Count 8.3 T/CUMM (4-12)
[2019-10-04 03:59] LABS: Calcium 8.5 MG/DL (8.5-10.1); Osmolality,Calculated 271.5 MOS/KG (273-304)
[2019-10-04] MEDS: MULTIVITAMIN (CENTRUM) TABLET PO SCH (08:11)
[2019-10-04] MEDS: ASPIRIN EC 325 MG TABLET PO SCH (08:11)
[2019-10-04] MEDS: ENOXAPARIN 100 MG/ML SYRINGE SUBCUT SCH ×2 (08:11→21:05)
[2019-10-04] MEDS: carvediloL 3.125 MG TABLET PO SCH ×2 (08:44→21:05)
[2019-10-04] MEDS: POTASSIUM CHLORIDE 10 MEQ TABLET PO SCH (08:44)
[2019-10-04] MEDS: DIGOXIN 0.125 MG TABLET PO SCH (13:14)
[2019-10-04] MEDS ORDERED: MAGNESIUM HYDROXIDE SUSP 30 ML UDCUP PO PRN (14:47)
[2019-10-04] MEDS ORDERED: SODIUM CHLORIDE 0.9% 1,000 ML IV SCH (17:00)
[2019-10-05] MEDS: MORPHINE 4 MG/1 ML VIAL IV PRN ×2 (01:41→09:07)
[2019-10-05 03:18] LABS: Basophils # 0.1 10*3/uL (0.0-0.2); Basophils % 1.1 % (0.0-0.8); Eosinophils # 0.2 10*3/uL (0.0-0.87); Eosinophils % 2.6 % (0.00-10.9); Hematocrit 37.4 VOL% (42.0-52.0); Hemoglobin 12.3 GM/DL (14.0-18.0); Immature Granulocytes % 0.3 %; Immature Granulocytes Absolute 0.02 #; Lymphocytes # 1.5 10*3/uL (1.4-4.0); Lymphocytes % 22.8 % (21.2-54.2); Mean Corpuscular HGB Conc 32.9 GM/DL (32-36); Mean Corpuscular Volume 97.1 FL (87-102); Mean Platelet Volume 10.4 FL (9.6-12.0); Monocytes % 8.4 % (1.7-12.7); Neutrophils % 64.8 % (38.7-73.9); Platelet Count 195 T/CUMM (130-400); Red Blood Count 3.85 MC/CUMM (3.8-5.5); Red Cell Distribution Width 14.8 % (9.3-17.3); White Blood Count 6.7 T/CUMM (4-12)
[2019-10-05 03:39] LABS: Calcium 8.6 MG/DL (8.5-10.1); Osmolality,Calculated 263.8 MOS/KG (273-304)
[2019-10-05] MEDS: ASPIRIN EC 325 MG TABLET PO SCH (09:06)
[2019-10-05] MEDS: ENOXAPARIN 100 MG/ML SYRINGE SUBCUT SCH (09:06)
[2019-10-05] MEDS: POTASSIUM CHLORIDE 10 MEQ TABLET PO SCH (09:06)
[2019-10-05] MEDS: MULTIVITAMIN (CENTRUM) TABLET PO SCH (09:07)
[2019-10-05] MEDS: carvediloL 3.125 MG TABLET PO SCH (09:07)
[2019-10-05 12:03] VITALS: BP 93/48
[2019-10-05] MEDS: DIGOXIN 0.125 MG TABLET PO SCH (13:07)
== END 2019-10-05 14:07 | disposition home or self-care (01) ==
LOC: N.TELES → SUATTDRO 06:18
PROVIDERS: ADMIT Internal Medicine; ATTEND Family Medicine

== ENCOUNTER 2019-10-19 17:10 | Inpatient (IN) ==
[2019-10-19] MEDS ORDERED: FUROSEMIDE 40 MG/4 ML VIAL IV STA (17:56)
[2019-10-19] MEDS ORDERED: DILTIAZEM 50 MG/10 ML VIAL IV STA (18:00)
[2019-10-19 18:11] LABS: Basophils # 0.1 10*3/uL (0.0-0.2); Basophils % 0.6 % (0.0-0.8); Eosinophils # 0.1 10*3/uL (0.0-0.87); Eosinophils % 0.9 % (0.00-10.9); Hematocrit 38.6 VOL% (42.0-52.0); Hemoglobin 12.6 GM/DL (14.0-18.0); Immature Granulocytes % 0.6 %; Immature Granulocytes Absolute 0.06 #; Lymphocytes # 1.5 10*3/uL (1.4-4.0); Lymphocytes % 14.9 % (21.2-54.2); Mean Corpuscular HGB Conc 32.6 GM/DL (32-36); Mean Platelet Volume 9.9 FL (9.6-12.0); Monocytes % 8.3 % (1.7-12.7); NRBC # 0.02 10*3/uL; Neutrophils % 74.7 % (38.7-73.9); Platelet Count 388 T/CUMM (130-400); Red Blood Count 4.02 MC/CUMM (3.8-5.5); Red Cell Distribution Width 15.3 % (9.3-17.3); White Blood Count 9.9 T/CUMM (4-12)
[2019-10-19] MEDS ORDERED: ALBUTEROL NEB SOLN 5 MG/ML 20 ML/BOTTLE CONT NEB STA (18:21)
[2019-10-19 18:27] LABS: INR 1.4; PT Patient Result 14.3 SECS (9.8-11.9); Partial Thromboplastin Time 28.3 SECS (23.9-33.8)
[2019-10-19 18:28] LABS: Albumin 2.2 G/DL (3.4-5.0); Bilirubin,Total 1.6 MG/DL (0.2-1.0); CKMB % 4.2 %; Calcium 8.3 MG/DL (8.5-10.1); Ferritin 196.3 ng/ml (26-388); Osmolality,Calculated 262.9 MOS/KG (273-304); Total Protein 6.5 G/DL (6.4-8.3)
[2019-10-19 18:30] LABS: Troponin I 0.922 NG/ML (0.00-0.045)
[2019-10-19] MEDS ORDERED: cefTRIAXone 1,000 MG in SODIUM CHLORIDE 0.9% 100 ML IV STA (18:45)
[2019-10-19] MEDS ORDERED: AZITHROMYCIN INJ 500 MG in SODIUM CHLORIDE 0.9% 250 ML IV STA (18:45)
[2019-10-19 19:01] LABS: Apearance,Urine CLEAR (Clear); Bilirubin,Urine Negative (Negative); Blood, Urine Negative (Negative); Glucose,Urine (UA) Negative (Negative); Ketones,Urine Negative (Negative); Mucus,Urine Occasional /LPF (Occasional); Nitrite,Urine Negative (Negative); Protein,Urine Negative; RBC,Urine 1 /HPF (0-4); Squamous Epithelial Cell,Urine Occasional /HPF (0-10); Urine Color Amber (Yellow); WBC,Urine 1 /HPF (0-6)
[2019-10-19] MEDS ORDERED: MAGNESIUM SULF RIDER 2 GM in PREMIX 1 EACH IV PRN (19:16)
[2019-10-19] MEDS ORDERED: MAGNESIUM SULF RIDER 4 GM in PREMIX 1 EACH IV PRN (19:16)
[2019-10-19] MEDS ORDERED: KETOROLAC 30 MG/1 ML VIAL IV STA (19:24)
[2019-10-19 19:53] LABS: Thyroid Stimulating Hormone 8.28 uIU/ml (0.358-3.74)
[2019-10-19 20:19] LABS: ABG Base Excess -4.5 MMOL/L (-2.5-2.5); ABG HCO3 20.8 MMOL/L (20-26); ABG PH 7.512 (7.35-7.45); ABG TCO2 14.1 MMOL/L (23-27); Allen Test Positive
[2019-10-19 20:21] LABS: ABG PCO2 20.5 MM HG (35-48)
[2019-10-19] MEDS: FUROSEMIDE INJ 100 MG in SODIUM CHLORIDE 0.9% 90 ML IV SCH (21:00)
[2019-10-19] MEDS ORDERED: PHENYLEPHRINE DRIP 40 MG/250 ML PREMIX IV ONE (21:30)
[2019-10-19] MEDS ORDERED: PHENYLEPHRINE DRIP 40 MG/250 ML PREMIX IV PRN (21:47)
[2019-10-19] MEDS: ENOXAPARIN 40 MG/0.4 ML SYRINGE SUBCUT SCH (22:04)
[2019-10-20] MEDS ORDERED: DOPamine 800 MG/250 ML PREMIX IV PRN (01:46)
[2019-10-20 05:12] LABS: Basophils # 0.1 10*3/uL (0.0-0.2); Basophils % 0.6 % (0.0-0.8); Eosinophils % 0.3 % (0.00-10.9); Hemoglobin 12.9 GM/DL (14.0-18.0); Immature Granulocytes % 0.7 %; Immature Granulocytes Absolute 0.08 #; Lymphocytes # 1.3 10*3/uL (1.4-4.0); Lymphocytes % 12.3 % (21.2-54.2); Mean Corpuscular HGB Conc 32.3 GM/DL (32-36); Mean Corpuscular Volume 96.6 FL (87-102); Mean Platelet Volume 9.2 FL (9.6-12.0); Monocytes % 7.7 % (1.7-12.7); Neutrophils % 78.4 % (38.7-73.9); Platelet Count 414 T/CUMM (130-400); Red Blood Count 4.14 MC/CUMM (3.8-5.5); Red Cell Distribution Width 15.1 % (9.3-17.3); White Blood Count 10.8 T/CUMM (4-12)
[2019-10-20] MEDS: FUROSEMIDE INJ 100 MG in SODIUM CHLORIDE 0.9% 90 ML IV SCH ×3 (05:20→17:08)
[2019-10-20 05:43] LABS: Hypochromasia 1+; Lymphocytes 13 % (20-55); Segmented Neutrophils 81 % (50-85); Total Cells Counted 100
[2019-10-20 05:44] LABS: Macrocytosis Slight
[2019-10-20 05:46] LABS: Albumin 1.9 G/DL (3.4-5.0); Bilirubin,Total 1.2 MG/DL (0.2-1.0); Osmolality,Calculated 265.8 MOS/KG (273-304); Risk Ratio 2.4; Total Protein 5.9 G/DL (6.4-8.3); VLDL CHOLESTEROL 12.6 MG/DL
[2019-10-20] MEDS: metOLazone 2.5 MG TABLET PO SCH (08:27)
[2019-10-20] MEDS: ASPIRIN CHEW 81 MG TABLET PO SCH (08:27)
[2019-10-20] MEDS: POLYETHYLENE GLYCOL POWDER 17 GM PACK PO SCH (10:33)
[2019-10-20] MEDS: DIGOXIN 0.125 MG TABLET PO SCH (10:33)
[2019-10-20] MEDS: FAMOTIDINE 20 MG TABLET PO SCH ×2 (10:36→20:46)
[2019-10-20] MEDS ORDERED: MAGNESIUM SULF RIDER 4 GM in PREMIX 1 EACH IV PRN (11:29)
[2019-10-20] MEDS ORDERED: MAGNESIUM SULF RIDER 2 GM in PREMIX 1 EACH IV PRN (11:29)
[2019-10-20] MEDS ORDERED: DIGOXIN 0.125 MG TABLET PO SCH (13:00)
[2019-10-20] MEDS ORDERED: MAGNESIUM SULF RIDER 2 GM in PREMIX 1 EACH IV ONE (13:01)
[2019-10-20] MEDS ORDERED: AMIODARONE INJ 150 MG in DEXTROSE 5% 100 ML IV ONE (20:16)
[2019-10-20] MEDS ORDERED: AMIODARONE 150 MG/3 ML VIAL ONE (20:19)
[2019-10-20] MEDS ORDERED: AMIODARONE INJ 450 MG in DEXTROSE 5% 241 ML IV SCH (20:30)
[2019-10-20 20:43] LABS: Albumin 2.3 G/DL (3.4-5.0); Bilirubin,Total 1.2 MG/DL (0.2-1.0); Calcium 8.6 MG/DL (8.5-10.1); Osmolality,Calculated 268.7 MOS/KG (273-304); Total Protein 6.9 G/DL (6.4-8.3)
[2019-10-20] MEDS: ENOXAPARIN 40 MG/0.4 ML SYRINGE SUBCUT SCH (20:46)
[2019-10-21] MEDS: POTASSIUM CHLORIDE 20 MEQ TABLET PO PRN ×5 (00:21→12:10)
[2019-10-21] MEDS: FUROSEMIDE INJ 100 MG in SODIUM CHLORIDE 0.9% 90 ML IV SCH ×3 (03:15→14:30)
[2019-10-21] MEDS: AMIODARONE INJ 450 MG in DEXTROSE 5% 241 ML IV SCH ×3 (03:23→18:23)
[2019-10-21 05:18] LABS: Basophils % 0.4 % (0.0-0.8); Eosinophils # 0.1 10*3/uL (0.0-0.87); Eosinophils % 0.7 % (0.00-10.9); Hematocrit 40.3 VOL% (42.0-52.0); Immature Granulocytes % 0.3 %; Immature Granulocytes Absolute 0.03 #; Lymphocytes # 0.9 10*3/uL (1.4-4.0); Lymphocytes % 8.9 % (21.2-54.2); Mean Corpuscular HGB Conc 32.3 GM/DL (32-36); Mean Corpuscular Volume 94.8 FL (87-102); Monocytes % 8.8 % (1.7-12.7); Neutrophils % 80.9 % (38.7-73.9); Platelet Count 412 T/CUMM (130-400); Red Blood Count 4.25 MC/CUMM (3.8-5.5); White Blood Count 10.4 T/CUMM (4-12)
[2019-10-21 05:53] LABS: Calcium 8.6 MG/DL (8.5-10.1); Osmolality,Calculated 266.8 MOS/KG (273-304)
[2019-10-21 05:57] LABS: Albumin 2.1 G/DL (3.4-5.0); Bilirubin,Total 1.9 MG/DL (0.2-1.0); Calcium 8.5 MG/DL (8.5-10.1); Osmolality,Calculated 266.8 MOS/KG (273-304); Total Protein 6.6 G/DL (6.4-8.3)
[2019-10-21] MEDS: DIGOXIN 0.125 MG TABLET PO SCH (08:13)
[2019-10-21] MEDS: ASPIRIN CHEW 81 MG TABLET PO SCH (08:13)
[2019-10-21] MEDS: metOLazone 2.5 MG TABLET PO SCH ×2 (08:13→22:14)
[2019-10-21] MEDS: POLYETHYLENE GLYCOL POWDER 17 GM PACK PO SCH (08:14)
[2019-10-21] MEDS: FAMOTIDINE 20 MG TABLET PO SCH ×2 (08:14→22:15)
[2019-10-21] MEDS ORDERED: MAGNESIUM SULF RIDER 2 GM in PREMIX 1 EACH IV ONE (09:49)
[2019-10-21] MEDS: ENOXAPARIN 120 MG/0.8 ML SYRINGE SUBCUT SCH ×2 (10:24→22:15)
[2019-10-21] MEDS: DILTIAZEM 30 MG TABLET PO SCH ×3 (12:09→22:16)
[2019-10-21] MEDS: POTASSIUM CHLORIDE 20 MEQ TABLET PO SCH ×2 (13:48→22:14)
[2019-10-21] MEDS: AMIODARONE 200 MG TABLET PO SCH (16:56)
[2019-10-21] MEDS: carvediloL 6.25 MG TABLET PO SCH (16:56)
[2019-10-21] MEDS ORDERED: carvediloL 3.125 MG TABLET PO SCH (17:00)
[2019-10-22] MEDS: FUROSEMIDE INJ 100 MG in SODIUM CHLORIDE 0.9% 90 ML IV SCH ×4 (00:09→22:26)
[2019-10-22 06:15] LABS: Basophils % 0.4 % (0.0-0.8); Eosinophils # 0.1 10*3/uL (0.0-0.87); Hematocrit 39.2 VOL% (42.0-52.0); Hemoglobin 12.5 GM/DL (14.0-18.0); Immature Granulocytes % 0.3 %; Immature Granulocytes Absolute 0.03 #; Lymphocytes # 0.8 10*3/uL (1.4-4.0); Lymphocytes % 8.4 % (21.2-54.2); Mean Corpuscular HGB Conc 31.9 GM/DL (32-36); Monocytes % 7.9 % (1.7-12.7); Platelet Count 382 T/CUMM (130-400); Red Blood Count 4.04 MC/CUMM (3.8-5.5); Red Cell Distribution Width 14.7 % (9.3-17.3)
[2019-10-22 06:39] LABS: Albumin 1.9 G/DL (3.4-5.0); Bilirubin,Total 1.5 MG/DL (0.2-1.0); Calcium 8.9 MG/DL (8.5-10.1); Osmolality,Calculated 272.2 MOS/KG (273-304); Total Protein 6.4 G/DL (6.4-8.3)
[2019-10-22 07:01] LABS: Calcium 8.7 MG/DL (8.5-10.1); Osmolality,Calculated 272.2 MOS/KG (273-304)
[2019-10-22] MEDS: POTASSIUM CHLORIDE 20 MEQ TABLET PO SCH ×2 (08:14→20:22)
[2019-10-22] MEDS: AMIODARONE 200 MG TABLET PO SCH (08:14)
[2019-10-22] MEDS: DILTIAZEM 30 MG TABLET PO SCH ×4 (08:14→20:27)
[2019-10-22] MEDS: DIGOXIN 0.125 MG TABLET PO SCH (08:14)
[2019-10-22] MEDS: ASPIRIN CHEW 81 MG TABLET PO SCH (08:14)
[2019-10-22] MEDS: carvediloL 6.25 MG TABLET PO SCH ×3 (08:14→16:45)
[2019-10-22] MEDS: FAMOTIDINE 20 MG TABLET PO SCH ×2 (08:15→20:22)
[2019-10-22] MEDS: POTASSIUM CHLORIDE RIDER 10 MEQ in PREMIX 1 EACH IV PRN ×2 (08:15→12:29)
[2019-10-22] MEDS: metOLazone 2.5 MG TABLET PO SCH ×2 (08:15→20:22)
[2019-10-22] MEDS: POLYETHYLENE GLYCOL POWDER 17 GM PACK PO SCH (08:15)
[2019-10-22] MEDS: AMIODARONE INJ 450 MG in DEXTROSE 5% 241 ML IV SCH (08:25)
[2019-10-22] MEDS: ENOXAPARIN 120 MG/0.8 ML SYRINGE SUBCUT SCH (11:01)
[2019-10-22] MEDS ORDERED: POTASSIUM CHLORIDE 20 MEQ TABLET PO ONE (13:10)
[2019-10-22] MEDS: GABAPENTIN 100 MG CAPSULE PO SCH ×2 (16:44→20:22)
[2019-10-22] MEDS: APIXABAN 5 MG TABLET PO SCH (20:21)
[2019-10-22] MEDS: POTASSIUM CHLORIDE 20 MEQ TABLET PO PRN ×2 (21:36→23:34)
[2019-10-23] MEDS: POTASSIUM CHLORIDE 20 MEQ TABLET PO PRN ×7 (01:15→23:15)
[2019-10-23 06:21] LABS: Basophils # 0.1 10*3/uL (0.0-0.2); Basophils % 0.7 % (0.0-0.8); Eosinophils # 0.1 10*3/uL (0.0-0.87); Eosinophils % 0.8 % (0.00-10.9); Hematocrit 36.9 VOL% (42.0-52.0); Immature Granulocytes % 0.6 %; Immature Granulocytes Absolute 0.05 #; Lymphocytes # 0.9 10*3/uL (1.4-4.0); Lymphocytes % 10.2 % (21.2-54.2); Mean Corpuscular HGB Conc 32.5 GM/DL (32-36); Mean Corpuscular Volume 94.4 FL (87-102); Mean Platelet Volume 9.6 FL (9.6-12.0); Monocytes % 9.4 % (1.7-12.7); Neutrophils % 78.3 % (38.7-73.9); Platelet Count 369 T/CUMM (130-400); Red Blood Count 3.91 MC/CUMM (3.8-5.5); White Blood Count 8.8 T/CUMM (4-12)
[2019-10-23 06:53] LABS: Calcium 8.8 MG/DL (8.5-10.1); Osmolality,Calculated 272.2 MOS/KG (273-304)
[2019-10-23 07:32] LABS: Folate 17.6 NG/ML (5.4-24.0)
[2019-10-23] MEDS: AMIODARONE 200 MG TABLET PO SCH (09:20)
[2019-10-23] MEDS: DILTIAZEM 30 MG TABLET PO SCH ×4 (09:21→20:05)
[2019-10-23] MEDS: carvediloL 6.25 MG TABLET PO SCH ×2 (09:22→17:06)
[2019-10-23] MEDS: GABAPENTIN 100 MG CAPSULE PO SCH ×3 (09:22→20:04)
[2019-10-23] MEDS: FAMOTIDINE 20 MG TABLET PO SCH ×2 (09:22→20:04)
[2019-10-23] MEDS: APIXABAN 5 MG TABLET PO SCH ×2 (09:22→20:04)
[2019-10-23] MEDS: DIGOXIN 0.125 MG TABLET PO SCH (09:22)
[2019-10-23] MEDS: ASPIRIN CHEW 81 MG TABLET PO SCH (09:22)
[2019-10-23] MEDS: POTASSIUM CHLORIDE 20 MEQ TABLET PO SCH ×3 (09:23→20:04)
[2019-10-23] MEDS: metOLazone 2.5 MG TABLET PO SCH ×2 (09:34→20:04)
[2019-10-23] MEDS: POLYETHYLENE GLYCOL POWDER 17 GM PACK PO SCH (09:38)
[2019-10-23] MEDS: FUROSEMIDE INJ 100 MG in SODIUM CHLORIDE 0.9% 90 ML IV SCH ×2 (11:30→21:45)
[2019-10-24] MEDS: POTASSIUM CHLORIDE 20 MEQ TABLET PO PRN ×3 (01:13→05:23)
[2019-10-24 06:22] LABS: Basophils # 0.1 10*3/uL (0.0-0.2); Eosinophils # 0.1 10*3/uL (0.0-0.87); Eosinophils % 0.7 % (0.00-10.9); Hematocrit 37.4 VOL% (42.0-52.0); Hemoglobin 11.7 GM/DL (14.0-18.0); Immature Granulocytes % 0.6 %; Immature Granulocytes Absolute 0.04 #; Lymphocytes # 0.8 10*3/uL (1.4-4.0); Lymphocytes % 11.2 % (21.2-54.2); Mean Corpuscular HGB Conc 31.3 GM/DL (32-36); Mean Corpuscular Volume 98.2 FL (87-102); Mean Platelet Volume 9.1 FL (9.6-12.0); Monocytes % 12.9 % (1.7-12.7); Neutrophils % 73.6 % (38.7-73.9); Platelet Count 350 T/CUMM (130-400); Red Blood Count 3.81 MC/CUMM (3.8-5.5)
[2019-10-24 06:40] LABS: Calcium 8.7 MG/DL (8.5-10.1)
[2019-10-24] MEDS: FUROSEMIDE INJ 100 MG in SODIUM CHLORIDE 0.9% 90 ML IV SCH (09:13)
[2019-10-24] MEDS: AMIODARONE 200 MG TABLET PO SCH (09:15)
[2019-10-24] MEDS: POTASSIUM CHLORIDE 20 MEQ TABLET PO SCH ×3 (09:15→20:33)
[2019-10-24] MEDS: FAMOTIDINE 20 MG TABLET PO SCH ×2 (09:15→20:33)
[2019-10-24] MEDS: carvediloL 6.25 MG TABLET PO SCH (09:16)
[2019-10-24] MEDS: DILTIAZEM 30 MG TABLET PO SCH (09:16)
[2019-10-24] MEDS: GABAPENTIN 100 MG CAPSULE PO SCH ×3 (09:16→20:33)
[2019-10-24] MEDS: APIXABAN 5 MG TABLET PO SCH ×2 (09:16→20:33)
[2019-10-24] MEDS: DIGOXIN 0.125 MG TABLET PO SCH (09:16)
[2019-10-24] MEDS: metOLazone 2.5 MG TABLET PO SCH (09:16)
[2019-10-24] MEDS: POLYETHYLENE GLYCOL POWDER 17 GM PACK PO SCH (09:17)
[2019-10-24] MEDS: ASPIRIN CHEW 81 MG TABLET PO SCH (09:20)
[2019-10-24] MEDS ORDERED: BISACODYL 5 MG TABLET PO ONE (13:55)
[2019-10-24] MEDS: FUROSEMIDE 40 MG/4 ML VIAL IV SCH (17:31)
[2019-10-24] MEDS ORDERED: POTASSIUM CHLORIDE 20 MEQ TABLET PO ONE (18:00)
[2019-10-24] MEDS: carvediloL 12.5 MG TABLET PO SCH (20:33)
[2019-10-24] MEDS ORDERED: MAGNESIUM CITRATE 300 ML BOTTLE PO ONE (20:35)
[2019-10-25 06:31] LABS: Basophils # 0.1 10*3/uL (0.0-0.2); Basophils % 1.2 % (0.0-0.8); Eosinophils # 0.1 10*3/uL (0.0-0.87); Eosinophils % 1.7 % (0.00-10.9); Hemoglobin 11.3 GM/DL (14.0-18.0); Immature Granulocytes % 0.3 %; Immature Granulocytes Absolute 0.02 #; Lymphocytes % 15.6 % (21.2-54.2); Mean Corpuscular HGB Conc 30.5 GM/DL (32-36); Mean Corpuscular Volume 99.7 FL (87-102); Mean Platelet Volume 9.4 FL (9.6-12.0); Monocytes % 11.3 % (1.7-12.7); Neutrophils % 69.9 % (38.7-73.9); Platelet Count 327 T/CUMM (130-400); Red Blood Count 3.71 MC/CUMM (3.8-5.5); Red Cell Distribution Width 14.9 % (9.3-17.3); White Blood Count 6.7 T/CUMM (4-12)
[2019-10-25 06:59] LABS: Calcium 8.4 MG/DL (8.5-10.1); Osmolality,Calculated 275.8 MOS/KG (273-304)
[2019-10-25] MEDS: AMIODARONE 200 MG TABLET PO SCH (08:45)
[2019-10-25] MEDS: FAMOTIDINE 20 MG TABLET PO SCH ×2 (08:45→21:26)
[2019-10-25] MEDS: POTASSIUM CHLORIDE 20 MEQ TABLET PO SCH ×2 (08:45→21:26)
[2019-10-25] MEDS: metOLazone 5 MG TABLET PO SCH (08:45)
[2019-10-25] MEDS: carvediloL 12.5 MG TABLET PO SCH ×2 (08:45→21:26)
[2019-10-25] MEDS: DIGOXIN 0.125 MG TABLET PO SCH (08:46)
[2019-10-25] MEDS: GABAPENTIN 100 MG CAPSULE PO SCH ×3 (08:46→21:26)
[2019-10-25] MEDS: APIXABAN 5 MG TABLET PO SCH ×2 (08:47→21:26)
[2019-10-25] MEDS: FUROSEMIDE 40 MG/4 ML VIAL IV SCH ×2 (08:47→15:23)
[2019-10-25] MEDS: POLYETHYLENE GLYCOL POWDER 17 GM PACK PO SCH (08:49)
[2019-10-25] MEDS: ASPIRIN CHEW 81 MG TABLET PO SCH (08:50)
[2019-10-25] MEDS: POTASSIUM CHLORIDE 20 MEQ TABLET PO PRN ×2 (17:06→18:40)
[2019-10-25] MEDS: MAGNESIUM OXIDE 400 MG TABLET PO SCH (21:26)
[2019-10-26 02:42] LABS: Basophils # 0.1 10*3/uL (0.0-0.2); Basophils % 1.3 % (0.0-0.8); Eosinophils # 0.2 10*3/uL (0.0-0.87); Eosinophils % 1.9 % (0.00-10.9); Hematocrit 34.9 VOL% (42.0-52.0); Hemoglobin 11.1 GM/DL (14.0-18.0); Immature Granulocytes % 0.4 %; Immature Granulocytes Absolute 0.03 #; Lymphocytes % 12.4 % (21.2-54.2); Mean Corpuscular HGB Conc 31.8 GM/DL (32-36); Mean Corpuscular Volume 97.5 FL (87-102); Mean Platelet Volume 9.1 FL (9.6-12.0); Monocytes % 9.4 % (1.7-12.7); Neutrophils % 74.6 % (38.7-73.9); Platelet Count 274 T/CUMM (130-400); Red Blood Count 3.58 MC/CUMM (3.8-5.5); White Blood Count 7.9 T/CUMM (4-12)
[2019-10-26 03:00] LABS: Calcium 8.6 MG/DL (8.5-10.1); Osmolality,Calculated 270.2 MOS/KG (273-304)
[2019-10-26 03:19] LABS: Albumin 1.9 G/DL (3.4-5.0); Bilirubin,Direct 0.7 MG/DL (0.0-0.20); Bilirubin,Indirect 0.5 MG/DL (0.0-1.0); Bilirubin,Total 1.2 MG/DL (0.2-1.0); Total Protein 5.6 G/DL (6.4-8.3)
[2019-10-26] MEDS: DIGOXIN 0.125 MG TABLET PO SCH (09:00)
[2019-10-26] MEDS: AMIODARONE 200 MG TABLET PO SCH (09:04)
[2019-10-26] MEDS: POTASSIUM CHLORIDE 20 MEQ TABLET PO SCH ×2 (09:06→21:00)
[2019-10-26] MEDS: POLYETHYLENE GLYCOL POWDER 17 GM PACK PO SCH (09:07)
[2019-10-26] MEDS: FAMOTIDINE 20 MG TABLET PO SCH ×2 (09:07→21:00)
[2019-10-26] MEDS: ASPIRIN CHEW 81 MG TABLET PO SCH (09:07)
[2019-10-26] MEDS: metOLazone 5 MG TABLET PO SCH (09:07)
[2019-10-26] MEDS: GABAPENTIN 100 MG CAPSULE PO SCH ×3 (09:07→21:00)
[2019-10-26] MEDS: MAGNESIUM OXIDE 400 MG TABLET PO SCH ×2 (09:07→21:00)
[2019-10-26] MEDS: APIXABAN 5 MG TABLET PO SCH ×2 (09:07→21:00)
[2019-10-26] MEDS: carvediloL 12.5 MG TABLET PO SCH ×2 (09:07→21:00)
[2019-10-26] MEDS: FUROSEMIDE 40 MG/4 ML VIAL IV SCH ×2 (09:08→15:23)
[2019-10-26] MEDS: POTASSIUM CHLORIDE RIDER 10 MEQ in PREMIX 1 EACH IV PRN (10:35)
[2019-10-27 06:43] LABS: Basophils # 0.1 10*3/uL (0.0-0.2); Basophils % 1.2 % (0.0-0.8); Eosinophils # 0.1 10*3/uL (0.0-0.87); Eosinophils % 1.8 % (0.00-10.9); Hematocrit 37.2 VOL% (42.0-52.0); Hemoglobin 11.6 GM/DL (14.0-18.0); Immature Granulocytes % 0.7 %; Immature Granulocytes Absolute 0.05 #; Lymphocytes # 1.2 10*3/uL (1.4-4.0); Lymphocytes % 16.7 % (21.2-54.2); Mean Corpuscular HGB Conc 31.2 GM/DL (32-36); Mean Corpuscular Volume 98.9 FL (87-102); Mean Platelet Volume 9.6 FL (9.6-12.0); Monocytes % 9.8 % (1.7-12.7); Neutrophils % 69.8 % (38.7-73.9); Platelet Count 303 T/CUMM (130-400); Red Blood Count 3.76 MC/CUMM (3.8-5.5); White Blood Count 7.3 T/CUMM (4-12)
[2019-10-27 07:03] LABS: Osmolality,Calculated 271.1 MOS/KG (273-304)
[2019-10-27 08:42] VITALS: BP 102/59
[2019-10-27] MEDS: DIGOXIN 0.125 MG TABLET PO SCH (09:07)
[2019-10-27] MEDS: AMIODARONE 200 MG TABLET PO SCH (09:07)
[2019-10-27] MEDS: ASPIRIN CHEW 81 MG TABLET PO SCH (09:07)
[2019-10-27] MEDS: metOLazone 5 MG TABLET PO SCH (09:07)
[2019-10-27] MEDS: POLYETHYLENE GLYCOL POWDER 17 GM PACK PO SCH (09:07)
[2019-10-27] MEDS: POTASSIUM CHLORIDE 20 MEQ TABLET PO PRN (09:08)
[2019-10-27] MEDS: carvediloL 12.5 MG TABLET PO SCH (09:08)
[2019-10-27] MEDS: APIXABAN 5 MG TABLET PO SCH (09:08)
[2019-10-27] MEDS: POTASSIUM CHLORIDE 20 MEQ TABLET PO SCH (09:08)
[2019-10-27] MEDS: FAMOTIDINE 20 MG TABLET PO SCH (09:08)
[2019-10-27] MEDS: MAGNESIUM OXIDE 400 MG TABLET PO SCH (09:08)
[2019-10-27] MEDS: GABAPENTIN 100 MG CAPSULE PO SCH (09:09)
[2019-10-27] MEDS: FUROSEMIDE 40 MG/4 ML VIAL IV SCH (09:39)
[2019-10-27] MEDS ORDERED: FUROSEMIDE 80 MG TABLET PO SCH (16:00)
[2019-10-27] MEDS ORDERED: ASCORBIC ACID 500 MG TABLET PO SCH (21:00)
[2019-10-28] MEDS ORDERED: AMIODARONE 200 MG TABLET PO SCH (09:00)
== END 2019-10-27 13:10 | disposition home or self-care (01) | DRG 291 ==
LOC: EDUNIT# → EDBD → N.ED 17:10 → N.EDINP 19:01 → SUATTDRO 19:01 → N.ICU 19:45 → N.TELES 10-22 14:09
PROVIDERS: ADMIT Internal Medicine; ATTEND Internal Medicine